=== PATIENT | female | born 2000 | race African-American/Black ===

== ENCOUNTER → 2020-02-13 06:56 | Outpatient (CLI) | payer MEDICAID ==
[2020-02-13 07:34] LABS: BASOPHILS 0 % (0-2); EOSINOPHILS 0 % (0-7); HEMATOCRIT 41.7 % (36.0-48.0); HEMOGLOBIN 14.9 g/dL (12-16); IMMATURE GRANULOCYTES 0.4 % (0-5); LYMPHOCYTES 35.6 % (15-50); MCH 27.8 pg (26.0-34.0); MCHC 35.7 g/dL (31.0-37.0); MCV 77.8 fL (80.0-100.0); MONOCYTES 7.3 % (2-11); NEUTROPHILS 56.7 % (40-80); PLATELET COUNT 113 10x3/uL (130-400); RBC 5.36 10x6/uL (4.00-5.40); RDW 13.2 % (11.5-14.5); WBC 4.8 10x3/uL (4.8-10.8)
[2020-02-13 08:04] LABS: ALKALINE PHOSPHATASE 71 U/L (30-120); ALT (SGPT) 12 U/L (10-68); BILIRUBIN - INDIRECT 1.64 mg/dL (0.00-1.00); BILIRUBIN - TOTAL 1.94 mg/dL (0.2-1.3); CALC OSMOLALITY 266 mosm/kg (275-300); CALCIUM 9.2 mg/dL (8.5-10.1); CARBON DIOXIDE 25.7 mmol/L (21.0-32.0); CHLORIDE - SERUM 101 mmol/L (98-107); CHOL - HDL RATIO 1.9 ratio (2.3-4.1); CHOLESTEROL, TOTAL 127 mg/dL (0-200); CREATININE - SERUM 0.6 mg/dL (0.6-1.3); GLUCOSE 95 mg/dL (74-106); HDL CHOLESTEROL 67 mg/dL (32-96); LDL CHOLESTEROL 54 mg/dL (0-100); LDL-HDL RATIO 0.8 ratio (1.5-3.5); POTASSIUM - SERUM 4.3 mmol/L (3.5-5.1); PROTEIN - SERUM 7.7 g/dL (6.4-8.2); SODIUM 134 mmol/L (136-145); T4 THYROXINE 8.8 ug/dL (4.7-13.3); THYROID STIMULATING HORMONE 2.06 uIU/mL (0.36-3.74); TRIGLYCERIDE 30 mg/dL (30-200); UREA NITROGEN 9 mg/dL (7-18); eGFR NON AFRICAN AMERICAN > 90 mL/min (90-120)
== END | disposition home or self-care (01) ==
LOC: D.LAB 06:56
PROVIDERS: ATTEND Psychiatry & Neurology Child & Adolescent Psychiatry
DX: F31.32 Bipolar disorder, current episode depressed, moderate (principal); F50.2 Bulimia nervosa